=== PATIENT | female | born 1975 | race African-American/Black ===

== ENCOUNTER 2018-05-23 22:35 | Emergency (ER) | payer OTHER ==
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
[2018-05-24 01:00] VITALS: BP 118/69
== END 2018-05-24 01:00 | disposition home or self-care (01) ==
LOC: ER 22:35
DX: M25.512 Pain in left shoulder (principal); M54.5 Low back pain; V89.2XXA Person injured in unspecified motor-vehicle accident, traffic, initial encounter
CPT/HCPCS: 99283

== ENCOUNTER → 2020-01-10 | Outpatient (CLI) | payer OTHER ==
--- NOTE | 2020-01-10 17:57 | RADIOLOGY REPORT (SQ) ---
EXAM DESCRIPTION: CHEST 2 VIEWS IMAGES COMPLETED DATE/TIME: 01/10/2020 5:20 pm REASON FOR STUDY: (U07.1)COVID-19 COMPARISON: None. EXAM PARAMETERS: NUMBER OF VIEWS: two views TECHNIQUE: Digital Frontal and Lateral radiographic views of the chest acquired. RADIATION DOSE: NA LIMITATIONS: none FINDINGS: LUNGS AND PLEURA: Is ill-defined perihilar and lower lobe opacification on the left. MEDIASTINUM AND HILAR STRUCTURES: No masses or contour abnormalities. HEART AND VASCULAR STRUCTURES: Heart normal size. No evidence for failure. BONES: No acute findings. HARDWARE: None in the chest. OTHER: No other significant finding. IMPRESSION: Cannot exclude limited pneumonia in the left lung. May be consistent with an atypical i nfectious/ inflammatory process. TECHNICAL DOCUMENTATION: JOB ID: [id number] [employer]- All Rights Reserved Reading location - IP/workstation name: [email or web address]
== END ==
LOC: RAD 16:57
PROVIDERS: ATTEND Physician Assistant
DX: U07.1 COVID-19 (principal); R06.02 Shortness of breath
CPT/HCPCS: 71046